=== PATIENT | female | born 1930 | race African-American/Black ===

== ENCOUNTER 2017-02-02 12:49 | Emergency (ER) | payer OTHER ==
[~2017-02-02] VITALS: Ht 162.6 cm; Wt 68.0 kg
--- NOTE | ~2017-02-02 | EKG ---
[facility] [place] [address] ELECTROCARDIOGRAM REPORT Name: KATELYN TEJADA [id number] Admission: 02/02/17 Attend Phys: Discharge: 02/02/17 Date of : [birth year] Report #: [id number] THIS REPORT FOR: //name// [facility] ED Test Date: 2017-02-02 Test Time: 13:58:57 Pat Name: KATELYN TEJADA Department: Room: Gender: F [employer] Associate: Raman GOMEZ : 1930 Requested By: Jagdeep Weaver Order Number: [id number] MD: Kurtis Samson Measurements Intervals [place] Rate: 63 P: -3 [place]: 184 QRS: 12 QRSD: 114 T: 73 QT: 482 QTc: 494 Interpretive Statements Sinus rhythm Ventricular trigeminy Probable left atrial enlargement Abnormal R-wave progression, early transition LVH with IVCD and secondary repol abnrm Borderline prolonged QT interval No previous ECG available for comparison Electronically Signed On 02-03-2017 8:30:38 CDT by Kurtis Samson [email or web address] <ELECTRONICALLY SIGNED> By: Kurtis Samson MD, [facility] 02/03/17 0830 [id number] Kurtis Samson MD, [facility] /EPI
[~2017-02-02 12:49] MED LIST: ADULT LOW DOSE81 MG PO; ATIVAN0.5 MG PO; CO Q-1010 MG PO; FISHOIL PO; MICARDIS HCT 41 EACH PO; MICARDIS40 MG PO; NEPHROCAPS SOFT1 CAP PO; TOPROL XL50 MG PO; VITAMIN C100 M1 PO; VITAMIN D400 UNI1 PO; WELCHOL 625 MG625 MG PO
[2017-02-02 15:12] VITALS: BP 166/69
== END 2017-02-02 15:15 | disposition home or self-care (01) ==
LOC: ER 12:49
DX: R51 Headache (principal); I10 Essential (primary) hypertension; E78.5 Hyperlipidemia, unspecified; F03.90 Unspecified dementia, unspecified severity, without behavioral disturbance, psychotic disturbance, mood disturbance, and anxiety; Z90.710 Acquired absence of both cervix and uterus; Z90.89 Acquired absence of other organs